=== PATIENT | female | born 1975 | race Hispanic/Latino ===

== ENCOUNTER 2023-07-25 18:24 | Emergency (ER) | payer OTHER ==
[~2023-07-25] VITALS: Ht 163 cm; Wt 68.0 kg
[2023-07-25] MEDS ORDERED: ADVIL200 MG PO (18:39)
[2023-07-25] MEDS ORDERED: HYDROCODON-ACE1 EA10 PO (20:54)
[2023-07-25 21:55] VITALS: BP 134/71
== END 2023-07-25 21:55 | disposition home or self-care (01) ==
LOC: ED 18:24
DX: S52.532A Colles' fracture of left radius, initial encounter for closed fracture (principal); S52.045A Nondisplaced fracture of coronoid process of left ulna, initial encounter for closed fracture; W01.0XXA Fall on same level from slipping, tripping and stumbling without subsequent striking against object, initial encounter
CPT/HCPCS: 29105; 73080; 73090; 73110; 99283-25; A9270; J2270